=== PATIENT | female | born 1975 | race Two or more races ===

== ENCOUNTER 2021-11-19 21:18 | Emergency (ER) | payer BC ==
[~2021-11-19] VITALS: Ht 162.6 cm; Wt 115.4 kg
[2021-11-19 21:29] VITALS: BP 149/64
== END 2021-11-19 21:36 | disposition left against medical advice (07) ==
LOC: ER 21:18
DX: R51.9 Headache, unspecified (principal); H92.01 Otalgia, right ear; Z53.21 Procedure and treatment not carried out due to patient leaving prior to being seen by health care provider